=== PATIENT | female | born 1940 | race Caucasian/White ===

== ENCOUNTER 2018-10-17 15:40 | Emergency (ER) | payer MEDICARE, BC ==
[2018-10-17] MEDS: PHENYLephrine 1% 15 ML NAS SPRAY NASAL (17:58)
== END 2018-10-18 02:51 | disposition left against medical advice (07) ==
LOC: FTE 10-18 02:51
DX: R04.0 Epistaxis (principal)
CPT/HCPCS: 99282